=== PATIENT | male | born 1945 | race Caucasian/White ===

== ENCOUNTER 2016-09-30 12:59 | Day surgery (SDC) | payer MEDICARE, OTHER ==
[2016-09-30] MEDS ORDERED: LIDOCAINE HCL 1% PF 30 ML VIAL ONE (15:47)
--- NOTE | 2016-09-30 16:23 | RADRPT ---
EXAM DATE/TIME: 09/30/2016 14:07 [place] COMPARISON: No previous studies available for comparison. EXTERNAL COMPARISON: [facility], CT SOFT TISSUE NECK, W & W/O CONTRAST, Aug 27 2016. [facility], CT SOFT TISSUE NECK,W/ CONTRAST, December 02, 2014. INDICATIONS : Right neck mass. MEDICAL HISTORY : Gastroesophageal reflux disease. SURGICAL HISTORY : Spinal stimulator. ENCOUNTER: Initial ACUITY: 1 month PAIN SCORE: 0/10 LOCATION: Right neck ORGAN: Right lymph node neck. SPECIMENS: Four core specimen(s) submitted for pathologic evaluation. DEVICE: 20 gauge Temno needle Post procedure scanning reveals no hematoma or other complication. The possibility does exist that the tissue obtained will be non-diagnostic. If the sample is non-everette gnostic a repeat biopsy or surgical biopsy may need to be performed. TECHNIQUE: 1. Ultrasound guidance for needle biopsy. 2. Needle biopsy. The risks, benefits, and alternatives to ultrasound guided needle biopsy were explained to the patien t in detail including the risk of bleeding and infection. Written and verbal informed consent was ob tained. With the patient on the ultrasound table, images were obtained. There is a lobulated hypoechoic francois d mass at the palpable lump site measuring 1.6 x 1.3 x 2.3 cm. It appears to be directly inferior to the parotid gland. Overlying skin was prepped and draped in the usual sterile fashion and Lidocaine w as utilized as a local anesthetic. A needle was advanced into the right neck mass suspected to be a lymph node and 4 core specimens were obtained and submitted for pathologic evaluation. The patient tolerated the procedure well and left the ultrasound suite in stable condition. CONCLUSION: Uncomplicated ultrasound guided needle biopsy of the suspected abnormal right neck lymph node. Flip Gimenez MD on September 30, 2016 at 16:19 Board Certified Radiologist. This report was verified electronically.
== END 2016-09-30 14:30 | disposition home or self-care (01) ==
LOC: HRAD 12:59 → HRIP 13:05 → HRAD 14:30
PROVIDERS: ATTEND Otolaryngology Otolaryngology/Facial Plastic Surgery
DX: R22.1 Localized swelling, mass and lump, neck (principal); K21.9 Gastro-esophageal reflux disease without esophagitis
CPT/HCPCS: 38505; 76942; 88184; 88185; 88305